=== PATIENT | female | born 1980 | race Caucasian/White ===

== ENCOUNTER 2023-05-04 18:00 | Emergency (ER) | payer MEDICAID ==
[~2023-05-04] VITALS: Ht 149.9 cm; Wt 54.0 kg
[~2023-05-04 18:00] MED LIST: NONE REPORTED; PREN-88 PO
[2023-05-04 18:18] VITALS: O2SAT 98
[2023-05-04] MEDS ORDERED: KETOROLAC 60MG/2ML VIAL IM ONE (20:15)
[2023-05-04] MEDS ORDERED: ACETAMINOPHEN 325MG TABLET PO ONE (20:15)
[2023-05-04 20:31] LABS: CLARITY URINE TURBID (CLEAR); COLOR URINE RED (YELLOW); KETONES URINE NEGATIVE (NEGATIVE); LEUKOCYTE ESTERASE URINE 2+ (NEGATIVE); NITRITE URINE NEGATIVE (NEGATIVE); OCCULT BLOOD URINE 3+ (NEGATIVE); PH URINE 6.5 (4.5-8.0); PROTEIN URINE 2+ (NEGATIVE); SPECIFIC GRAVITY URINE 1.027 (1.005-1.030); UROBILINOGEN URINE 0.2 E.U./dL (0.2-1.0)
[2023-05-04 20:54] VITALS: BP 114/37
[2023-05-04] MEDS: METHOCARBAMOL 750MG TABLET PO SCH ×2 (20:55→21:21)
[2023-05-04] MEDS ORDERED: IBUP-2028 MT (21:21)
[2023-05-04] MEDS ORDERED: TOPUD PO (21:21)
[2023-05-04] MEDS ORDERED: METH-653 MT (21:21)
[2023-05-04 21:39] VITALS: PULSE 91; RESP 20; TEMP 98.2
== END 2023-05-04 21:40 | disposition home or self-care (01) ==
LOC: ER 18:00
DX: M79.661 Pain in right lower leg (principal); E11.9 Type 2 diabetes mellitus without complications; E78.00 Pure hypercholesterolemia, unspecified
CPT/HCPCS: 99283; 81003; 81025; 96372; J1885